=== PATIENT | male | born 1965 | race Caucasian/White ===

== ENCOUNTER → 2018-10-26 | Outpatient (CLI) | payer BC ==
--- NOTE | 2018-10-26 16:48 | PCVCIMAG ---
APPROVED REPORT Study performed: 10/26/2018 15:01:16 EXAM: Comprehensive 2D, Doppler, and color-flow Echocardiogram Patient Location: Echo lab Status: routine BSA: 2.26 HR: 82 bpmBP: 120/80 mmHg Rhythm: NSR Other Information Study Quality: Good Risk Factors: Cardiac Risk Factors: Hyperlipidemia, HTN 2D Dimensions IVSd: 16.31 (7-11mm)LVOT Diam: 21.18 (18-24mm) LVDd: 39.41 mm PWd: 13.17 (7-11mm)Ascending Ao: 31.31 (22-36mm) LVDs: 27.80 (25-40mm) Left Atrium: 42.89 (27-40mm) Aortic Root: 25.01 mm LV Single Plane 4CH: 50.99 % LV Single Plane 2CH: 58.54 % Biplane EF: 54.9 % Volumes Left Atrial Volume (Systole) Single Plane 4CH: 51.94 mLSingle Plane 2CH: 45.48 mL LA ESV Index: 22.00 mL/m2 Aortic Valve AoV Peak Aris.: 1.39 m/s AO Peak Gr.: 7.70 mmHgLVOT Max P.61 mmHg LVOT Max V: 1.18 m/s LEIDY Vmax: 3.01 cm2 Mitral Valve E/A Ratio: 1.2 MV Decel. Time: 171.23 ms MV E Max Aris.: 0.84 m/s MV A Aris.: 0.72 m/s IVRT: 89.97 ms TDI E/Lateral E': 7.00E/Medial E': 7.64 Medial E' Aris.: 0.11 m/s Lateral E' Aris.: 0.12 m/s Pulmonary Valve PV Peak Gr.: 3.38 mmHg Pulmonary Vein P Vein S: 0.47 m/sP Vein A: 0.26 m/s P Vein D: 0.50 m/sP Vein A Dur.: 90.0 msec P Vein S/D Ratio: 0.94 Left Ventricle The left ventricle is normal size. There is normal LV segmental wall motion. There is normal left ventricular wall thickness. Left ventricular systolic function is normal. The left ventricular ejection fraction is within the normal range. LVEF is 65%. Mild diastolic dysfunction is present (impaired relaxation pattern). Right Ventricle The right ventricle is normal size. The right ventricular systolic function is normal. Atria The left atrium size is normal. The right atrium size is normal. Aortic Valve The aortic valve is normal in structure. No aortic regurgitation is present. There is no aortic valvular stenosis. Mitral Valve The mitral valve is normal in structure. There is no mitral valve regurgitation noted. No evidence of mitral valve stenosis. Tricuspid Valve The tricuspid valve is normal in structure. There is no tricuspid valve regurgitation noted. Pulmonic Valve The pulmonary valve is normal in structure. There is no pulmonic valvular regurgitation. Great Vessels The aortic root is normal in size. IVC is normal in size and collapses >50% with inspiration. Pericardium There is no pericardial effusion. <Conclusion> Left ventricular systolic function is normal. There is normal LV segmental wall motion. LVEF is 65%. Mild diastolic dysfunction The aortic valve is normal in structure. No aortic regurgitation or stenosis. The mitral valve is normal in structure. No mitral valve regurgitation Pulmonary artery systolic pressure cannot be reliably ascertained There is no pericardial effusion.
--- NOTE | 2018-10-26 16:51 | PCVCIMAG ---
APPROVED REPORT Patient Location: Echo lab Room #: Stress Nurse: Sruthi Fernandez RN Treadmill stress test: Indication: Hypertension, Hyperlipidemia, Abnormal ekg The patient exercised according to the [place] for 11:00 Mins, achieving a work level of Max. Mets 13.40 The resting heart rate of 75 bpm brittnee to a maximal heart rate of 173 bpm. This value represents 103% of the maximal, age predicted heart rate. The resting blood pressure of 120/80 mmHg., brittnee to a maximum blood pressure of 184/70. The exercise test was stopped due to fatigue. Resting EKG: Sinus rhythm normal tracing Stress electrocardiogram: Rare, isolated premature ventricular complexes. No ST segment shifts diagnostic of myocardial ischemia. Conclusion 1. Maximal treadmill exercise study negative for exercise-induced myocardial ischemia. 2. No significant dysrhythmias. No diagnostic ischemic electrocardiographic changes. 3. The study was associated with good exercise capacity (13.4 METS). Low Panchal treadmill exercise score
== END | disposition home or self-care (01) ==
LOC: PCVCIMAG 14:55
PROVIDERS: ATTEND Internal Medicine
DX: R94.31 Abnormal electrocardiogram [ECG] [EKG] (principal); I10 Essential (primary) hypertension; E78.5 Hyperlipidemia, unspecified; Z88.1 Allergy status to other antibiotic agents
CPT/HCPCS: 93017; 93306